=== PATIENT | female | born 1950 | race Caucasian/White ===

== ENCOUNTER 2023-01-30 09:46 | Outpatient (CLI) | payer MEDICARE, OTHER ==
[2023-01-30 10:01] LABS: HCT - HEMATOCRIT 39.8 % (37.0-47.0); HGB - HEMOGLOBIN 12.6 g/dL (12.0-16.0); MEAN CORPUSCULAR HEMOGLOBIN 31.8 pg (27.0-31.0); MEAN CORPUSCULAR HGB CONC 31.7 g/dL (32.0-36.0); MEAN CORPUSCULAR VOLUME 100.5 fL (81.0-99.0); MEAN PLATELET VOLUME 9.1 fL (7.9-10.8); RED BLOOD COUNT 3.96 10^6/uL (4.20-5.40); RED CELL DISTRIBUTION WIDTH 13.1 % (12.0-15.0); WHITE BLOOD COUNT 3.7 x10^3/uL (4.8-10.8)
[2023-01-30 10:15] LABS: ALBUMIN 4.2 g/dL (3.2-5.5); ALBUMIN/GLOBULIN RATIO 1.6 (1.0-2.2); ALKALINE PHOSPHATASE 62 IU/L (42-121); ALT ALANINE AMINOTRANSFERASE 10 IU/L (10-60); AST ASPARTATE AMINOTRANSFERASE 15 IU/L (10-42); BILIRUBIN,TOTAL 0.4 mg/dL (0.2-1.0); BUN - BLOOD UREA NITROGEN 14 mg/dL (6-20); CALCIUM 9.5 mg/dL (8.5-10.3); CARBON DIOXIDE - CO2 32 mmol/L (21-32); CHLORIDE 105 mmol/L (101-111); CHOL/HDL RATIO 4.3 (<4.4); CHOLESTEROL 260 mg/dL; CREATININE 0.8 mg/dL (0.6-1.3); GFR - MDRD 70 (>89); GLUCOSE 100 mg/dL (74-104); HDL CHOLESTEROL 61 mg/dL; LDL CHOLESTEROL,CALCULATED 168 mg/dL; LDL/HDL RATIO 2.8 (<4.4); POTASSIUM 4.3 mmol/L (3.5-4.5); SODIUM 140 mmol/L (135-145); TOTAL PROTEIN 6.8 g/dL (6.4-8.9); TRIGLYCERIDES 155 mg/dL (48-352); VLDL CHOLESTEROL 31 mg/dL
[2023-01-30 10:30] LABS: THYROID STIMULATING HORMONE 2.98 uIU/mL (0.34-5.60)
[2023-01-30 11:20] LABS: ESTIMATED AVERAGE GLUCOSE 120 mg/dL (70-100); HEMOGLOBIN A1c% 5.8 % (4.27-6.07)
== END 2023-01-30 09:47 | disposition home or self-care (01) ==
LOC: LAB 09:46
PROVIDERS: ATTEND Family Medicine
DX: E78.5 Hyperlipidemia, unspecified (principal); Z13.6 Encounter for screening for cardiovascular disorders
CPT/HCPCS: 36415; 80053; 80061; 83036; 83721; 84443; 85027

== ENCOUNTER 2023-02-08 08:47 | Outpatient (CLI) | payer MEDICARE, OTHER ==
--- NOTE | 2023-02-08 09:45 | Sleep Patient Instructions ---
Sleep Center Visit Summary - Patient Visit Information Reason for Visit: Initial consult for evaluation of sleep disordered breathing and other sleep issues. - Patient Instructions Instructions Attached: Sleep Study Additional Instructions: You will be completing a sleep study, either an in-lab polysomnography (PSG) or home sleep study (HST). You will follow-up in the sleep care office after the sleep study is completed to hear the results and talk about therapy, if needed. You will be called by our office staff to schedule this appointment, but you may contact us with any questions. - Clinic Information Contact: [facility] [address] [place] [address] [email or web address] T: [phone]
--- NOTE | 2023-02-08 09:49 | SLEEP CARE CONSULTATION ---
Information from patient questionnaire entered by Jada Grijalva. I have reviewed and concur with the information entered by Jada Grijalva. This document represents the service I personally performed and the decisions made by me, Dora Lewis ARNP. History of Present Illness Service Date and Time: 02/08/2023 0847 Reason for Visit: New patient Chief Complaint: reports: Insomnia, Snoring, Frequent awakenings at night Date of Onset: OVER 10 YRS Usual bedtime: 10PM Time it takes to fall asleep: 45-60MIN Snores at night: Yes Observed to quit breathing while asleep: No Number of times waking at night: 4-6 Reasons for waking at night: reports: Other (UNKNOWN). denies: Choking, Gasping for air Toss, Turn, or Twitch while sleeping: Yes Recalls having dreams: Yes Usually gets out of bed at: 730AM Feels refreshed in the morning: Yes Morning headache: No Sleepy or fatigued during the day: No Ever fallen asleep while driving: No Takes day naps: No Prior sleep studies: Yes Additional HPI information: I had the pleasure of seeing CYRUS MOBLEY today regarding the possibility of her having a sleep disorder. Her current complaints are frequent night awakenings, insomnia and snoring. She says she does not feel she has slept well in a long time. She is active and does not take naps. She says she will wake up often, even an hour or so after falling asleep. She does not wake up feeling refreshed. She says she does snores. She denies choking or gasping for air. Her ex- said he never saw her stop breathing in her sleep, just snoring. She can take over an hour to go to sleep and will then wake up 4-6 times a night. She has difficulty going back to sleep too. She says she has had 2 previous sleep studies. After her first sleep study in [place], she was placed on a CPAP but she did not tolerate it for more than 2 months. She was retested in another state and they put her in an oral appliance that she could not tolerate because of TMJ pain in the morning after wearing the device. She said she did not feel she slept better when she used it either. - Parasomnia Symptoms Ever been unable to move upon waking from sleep: No Walks in sleep: No Talks in sleep: No Ever acted out dreams in sleep: No Ever felt weak in the knees when startled or emotional: No Bothered by creepy, crawly, restless sensations in legs: No Problems with memory or concentration: No Subjective Initial Garita Sleepiness Scale score: 5 (02/08/23) Past Medical History Past Medical History: reports: Other (high cholesterol) Social History The patient's occupation is a RETIRED. Patient is and lives in . Have you smoked in the past 12 months: No Alcohol use: Yes Alcohol amount and frequency: 1-2 GLASSES 1 X WEEK Caffeine use: Yes Caffeine amount and frequency: 2CUPS ONCE IN THE MORNING Family History Family history of sleep disordered breathing: Yes Family Hx Sleep Apnea: Father: Snoring Allergies and Home Medications Known drug allergies: No Drug allergies reviewed: Yes Home medication list reviewed: Yes Allergy and home medication list: Home Medications Medication Instructions Recorded Confirmed Last Taken Type Agg Powder See Rx Instructions .ROUTE .COMPLEX 02/08/23 Unknown History Cbd Gummies See Rx Instructions .ROUTE .COMPLEX 02/08/23 Unknown History Jennifer Sleep Aid See Rx Instructions .ROUTE .COMPLEX 02/08/23 Unknown History Review of Systems Weight loss over past 5 years: 3-5 Cardiovascular: denies: high blood pressure Gastrointestinal: denies: heartburn Neurological: denies: headaches Psychiatric: denies: anxiety, depression Ear/Nose/Throat: reports: nasal congestion, dry mouth/throat, wisdom teeth removed. denies: tonsillectomy Immunologic: reports: sneezing, allergies to food or environment Physical Exam Vital signs obtained and entered by: JADA Washburn MA Blood Pressure: 128/71 (LEFT ARM) Cuff size: regular Heart Rate: 73 O2 Saturation: 98 Height: 5 ft 3.25 in Weight: 125 lb 9.6 oz Body Mass Index: 22.0 BMI Classification: Normal Neck circumference: 13.25 Mouth and throat: narrow oropharynx Soft palate: long Hard palate: normal Uvula: normal Uvula visualization: 25% Mallampati Class III Tongue: enlarged in size with teeth crowley on lateral edges Tonsils: small Neck: normal w/o lymphadenopathy or thyromegaly Heart: regular rate and rhythm Lungs: clear bilaterally Impression and Plan 1. Suspected Obstructive Sleep Apnea-Hypopnea Syndrome, as previously diagnosed and as suggested by a history of loud and irregular snoring, frequent awakening during the night and unrefreshed sleep. Narrow oropharynx and obesity are common predisposing factors for obstructive sleep apnea-hypopnea syndrome. I recommend proceeding to polysomnography to confirm the diagnosis and to assess severity. If the patient has significant sleep disordered breathing, a manual CPAP titration study will also be performed to find the optimal treatment pressure. I informed the patient of what the sleep studies involve and after some discussion, obtained agreement to proceed. The pathophysiology of obstructive sleep apnea-hypopnea syndrome was discussed with the patient and health risks of cardiovascular and cerebrovascular disease if not treated. Risks of drowsy driving discussed in detail and patient advised to avoid long distance driving and to well puller at the first sign of drowsiness. Patient agreed to plan. * Schedule polysomnography. * Avoid long distance driving or driving when feeling sleepy. * Avoid alcohol, sedative and muscle relaxant around bedtime. * Attempt to lose weight. * Review instructions provided by trained office staff on how to prepare for the sleep study. * Return for follow-up after sleep study completed. Plan: PSG Visit Type: In Office Time Spent with Patient (minutes): 25 Provider Statement: I spent 100% of the Face to Face Visit with the patient with greater than 50% spent counseling the patient and coordination of care.
[2023-02-08 09:55] VITALS: BP 128/71; O2SAT 98
== END 2023-02-08 08:48 | disposition home or self-care (01) ==
LOC: SC 08:47
PROVIDERS: ATTEND Nurse Practitioner Family
DX: G47.8 Other sleep disorders (principal); R06.83 Snoring
CPT/HCPCS: 99202; G0463; 99212

== ENCOUNTER 2023-04-04 20:27 | Outpatient (CLI) | payer MEDICARE, OTHER | END 2023-04-04 20:28 | disposition home or self-care (01) | LOC: SC 20:27 | PROVIDERS: ATTEND Nurse Practitioner Family | DX: G47.8 Other sleep disorders (principal); G47.33 Obstructive sleep apnea (adult) (pediatric); G47.61 Periodic limb movement disorder | CPT/HCPCS: 95810 ==

== ENCOUNTER 2023-04-09 08:33 | Outpatient (CLI) | payer MEDICARE, OTHER ==
--- NOTE | 2023-04-09 09:02 | Sleep Patient Instructions ---
Sleep Center Visit Summary - Patient Visit Information Reason for Visit: Sleep study follow-up - Patient Instructions Additional Instructions: You will be completing a titration sleep study in our sleep lab where you will be sleeping with the CPAP machine on and we will be adjusting your pressures to find your optimal pressure settings. Once we have your results back, we will call you and schedule a follow up to go over the results. You will be called by our office staff to schedule your follow up, but you may contact us with any questions or issue as needed. - Clinic Information Contact: [facility] [address] [place] [address] [email or web address] T: [phone]
--- NOTE | 2023-04-09 09:15 | SLEEP CARE CONSULTATION ---
Information from patient questionnaire entered by Jada Grijalva. I have reviewed and concur with the information entered by Jada Grijalva. This document represents the service I personally performed and the decisions made by , Dora Lewis ARNP. History of Present Illness Service Date and Time: 04/09/2023832 Initial [place] Sleepiness Scale score: 5 (02/08/23) Current [place] Sleepiness Scale score: 2 Additional HPI information: CYRUS MOBLEY returns for follow up and results of the recently performed polysomnography. The sleep study showed mild obstructive sleep apnea with an average AHI of 10.8 and derik oxygen saturation of 83%. She had moderate PLMs that did contribute to sleep fragmentation. I explained the pathophysiology behind obstructive sleep apnea. We then spent quite a bit of time discussing different treatment options. For mild obstructive sleep apnea, surgery and oral appliance are alternatives to nasal CPAP therapy but in moderate or severe cases, nasal CPAP is the most effective and reliable treatment. After some discussion, the patient opted to go with the nasal CPAP therapy. A manual titration study will be ordered to find optimal pressure for CPAP therapy. I explained how CPAP machine works and what to expect when using the machine. Patient does not drink alcohol. Patient was cautioned about risks of drowsy driving until sleepiness symptoms resolve. Patient denies drowsy driving. Sleep Study - Results Type of Sleep Study: Polysomnography (COMPLETED 04/04/23) Prior sleep studies: Yes Polysomnography/Home Sleep Study results: IMPRESSION: The quality of the study is good. The patient had normal sleep efficiency. The sleep architecture was abnormal for sleep fragmentation and reduced amount of time spent in slow wave sleep (N3). Respiratory monitoring showed mild obstructive sleep apnea-hypopnea (AHI = 10.8) associated with frequent arousals, oxyhemoglobin desaturation and mild hypoxia (derik oxygen saturation of 83%). The respiratory events occurred almost exclusively during supine sleep. The patient did not sleep supine during this study. Snore was light to loud in intensity. There was moderate periodic leg movement of sleep contributing to the sleep fragmentation. Cardiac rhythm was normal sinus rhythm without significant arrhythmia. No abnormal behavior (parasomnia) observed during the night. Allergies and Home Medications Known drug allergies: No Drug allergies reviewed: Yes Home medication list reviewed: Yes (no changes) Allergy and home medication list: Allergies No Known Drug Allergies Allergy (Verified 04/08/23 11:45) Review of Systems Review of systems same as previous: Yes (no changes) Physical Exam Vital signs obtained and entered by: DORA MCDUFFIE-Maddison Blood Pressure: 130/80 Cuff size: regular (right arm) Heart Rate: 67 O2 Saturation: 99 Height: 5 ft 3.25 in Weight: 129 lb Body Mass Index: 22.6 BMI Classification: Normal Impression and Plan 1. Obstructive Sleep Apnea-Hypopnea Syndrome, mild, with lowest oxygen saturation of 83%. Obviously this is the cause of the patients symptoms of unrefreshed sleep, and excessive daytime sleepiness. Patient has tried a CPAP in the past for a few months. She thinks that she would like to try the CPAP again. She cannot use the oral appliance because of the discomfort. I also reviewed surgical options including Inspire implant. I also reviewed the excite ABAD stimulation treatment for mild sleep apnea and snoring. She opted to try the CPAP first and then look into other options as needed. A manual titration study will be completed to find optimal treatment pressure. Compliance guidelines also reviewed. 2. Hypoxemia, mild, with a derik oxygen saturation of 83% and 4.9 minutes spent under 90%. The baseline oxygen saturation was normal with an average oxygen saturation of 94%. 3. Periodic limb movement, moderate, that did contribute to fragmentation of patients sleep. Periodic limb movement of sleep (PLMS) is characterized by episodes of repetitive limb movements that occur during sleep and usually involve the lower limbs. The etiology is unknown. Caffeine can also aggravate PLMS and should be avoided. Sleep hygiene methods can also improve sleep as well as lifestyle changes such as regular exercise. Patient was advised that no treatment is needed at this time. If symptoms increase, then further evaluation is indicated. * Titration study. * Avoid alcohol consumption near bedtime. * Avoid supine sleep until using CPAP. * The patient is again cautioned about driving until sleepiness completely resolves. * Return after titration study to be set up with CPAP. Counseling Topics: Sleeping position, Weight control Follow up with Sleep Care in: other (after titration study) Plan: Titration study Visit Type: In Office Time Spent with Patient (minutes): 28 Provider Statement: I spent 100% of the Face to Face Visit with the patient with greater than 50% spent counseling the patient and coordination of care.
[2023-04-09 09:17] VITALS: BP 130/80; O2SAT 99
== END 2023-04-09 08:34 | disposition home or self-care (01) ==
LOC: SC 08:33
PROVIDERS: ATTEND Nurse Practitioner Family
DX: G47.33 Obstructive sleep apnea (adult) (pediatric) (principal); R09.02 Hypoxemia; G47.61 Periodic limb movement disorder
CPT/HCPCS: 99213; G0463; 99212

== ENCOUNTER 2023-04-20 20:30 | Outpatient (CLI) | payer MEDICARE, OTHER | END 2023-04-20 20:31 | disposition home or self-care (01) | LOC: SC 20:30 | PROVIDERS: ATTEND Nurse Practitioner Family | DX: G47.33 Obstructive sleep apnea (adult) (pediatric) (principal); G47.61 Periodic limb movement disorder | CPT/HCPCS: 95811 ==

== ENCOUNTER 2023-05-08 09:09 | Outpatient (CLI) | payer MEDICARE, OTHER ==
--- NOTE | 2023-05-08 09:47 | Sleep Patient Instructions ---
Sleep Center Visit Summary - Patient Visit Information Reason for Visit: Titration study follow-up - Patient Instructions Instructions Attached: CPAP Additional Instructions: You are being started on CPAP therapy with pressure setting at 6 cmH2O. You will need to call the sleep care office to set up your follow up once you have your CPAP machine to check compliance and response to therapy at that time. You may call the office with any concerns about pressure feeling too low or too much for adjustment, if needed. You should contact DME supplier for any questions or concerns about mask or equipment. Please call office to schedule a follow up appointment in the sleep care office one month after obtaining new device. - Clinic Information Contact: [facility] [address] [place] [address] [email or web address] T: [phone]
--- NOTE | 2023-05-08 09:50 | SLEEP CARE CONSULTATION ---
Information from patient questionnaire entered by Jada Grijalva. I have reviewed and concur with the information entered by Jada Grijalva. This document represents the service I personally performed and the decisions made by , Dora Lewis ARNP. History of Present Illness Service Date and Time: 05/08/2023908 Initial [place] Sleepiness Scale score: 5 Current [place] Sleepiness Scale score: 6 (05/08/23) Additional HPI information: LEAH MOBLEY returns for follow up of the sleep study with a manual CPAP titration study performed on 04/20/23. The patient was informed of the following polysomnography findings: CPAP was initiated at 5 cmH2O and titrated up to CPAP at 7 cmH2O. CPAP at 6 cmH2O appeared to be optimal (AHI of 0.6 per hour on the pressure). There was supine sleep on the pressure. Oxygen saturation was normal throughout the night. Lower CPAP settings also appeared adequate. The patient appeared to have tolerated positive airway pressure therapy fairly well. I explained how CPAP machine works and what to expect when using the machine. Using CPAP every night in order to get used to it was emphasized. Patient advised to put CPAP mask on before getting into bed so as not to fall asleep without CPAP. To assist acclimation to CPAP use, it could also be used for a short time during day while reading or watching TV. The patient was instructed to call the CPAP supplier to discuss any mechanical problem that may occur. If the mask given is uncomfortable or is difficult to keep on through the night even with adjustment, contact the CPAP supplier as many will replace with another mask style if notified before 30 days. If snoring or perceives is not getting enough air or too much air from the machine, notify this office. Patient was cautioned about risks of drowsy driving until sleepiness symptoms re solve. Sleep Study - Results Type of Sleep Study: Polysomnography (TITRATION F/U COMPLETED 04/20/23) Prior sleep studies: Yes Polysomnography/Home Sleep Study results: IMPRESSION: The quality of the study is good. CPAP was initiated at 5 cmH2O and titrated up to CPAP at 7 cmH2O. CPAP at 6 cmH2O appeared to be optimal (AHI of 0.6 per hour on the pressure). There was supine sleep on the pressure. Oxygen saturation was normal throughout the night. Lower CPAP settings also appeared adequate. The patient appeared to have tolerated positive airway pressure therapy fairly well. The patients sleep efficiency was minimally reduced. The sleep architecture was normal. There was moderate periodic leg movement of sleep not associated with sleep fragmentation. Cardiac rhythm was normal sinus rhythm without significant arrhythmia. No abnormal behavior (parasomnia) observed during the night. Allergies and Home Medications Known drug allergies: No Drug allergies reviewed: Yes Home medication list reviewed: Yes (no changes) Allergy and home medication list: Allergies No Known Drug Allergies Allergy (Verified 05/06/23 09:40) Review of Systems Review of systems same as previous: Yes (NO CHANGE) Physical Exam Vital signs obtained and entered by: JADA Washburn MA Blood Pressure: 125/78 (RIGHT ARM) Cuff size: regular Heart Rate: 75 O2 Saturation: 98 Height: 5 ft 3.25 in Weight: 127 lb 3.2 oz Body Mass Index: 22.3 BMI Classification: Normal Impression and Plan 1. Obstructive Sleep Apnea-Hypopnea Syndrome, mild. Leah returns today after a titration study to be set up with CPAP therapy. The patient will be started on nasal autoCPAP therapy with pressure set at 6 cmH2O. Compliance guidelines also reviewed. A copy of compliance guidelines will be given for reference at check out. She was advised to call once she has new CPAP to set up followup in the sleep office. She voiced understanding. 2. Periodic limb movement, moderate, that did not fragment patients sleep. Periodic limb movement of sleep (PLMS) is characterized by episodes of repetitive limb movements that occur during sleep and usually involve the lower limbs. The etiology is unknown. Sleep hygiene methods can also improve sleep as well as lifestyle changes such as regular exercise. Patient was advised that no treatment is needed at this time. If symptoms increase, then further evaluation is indicated. * Nasal auto CPAP therapy, pressure at 6 cm H2O. * Avoid alcohol consumption near bedtime. * The patient is again cautioned about driving until sleepiness completely resolves. * Return one month after CPAP obtained. I will assess response to therapy and compliance at that time. Prescriptions: Auto CPAP Follow up with Sleep Care in: other (compliance follow up) Visit Type: In Office Time Spent with Patient (minutes): 25 Provider Statement: I spent 100% of the Face to Face Visit with the patient with greater than 50% spent counseling the patient and coordination of care.
[2023-05-08 09:54] VITALS: BP 125/78; O2SAT 98
== END 2023-05-08 09:10 | disposition home or self-care (01) ==
LOC: SC 09:09
PROVIDERS: ATTEND Nurse Practitioner Family
DX: G47.33 Obstructive sleep apnea (adult) (pediatric) (principal); G47.61 Periodic limb movement disorder
CPT/HCPCS: 99213; G0463; 99212

== ENCOUNTER 2023-07-10 09:13 | Outpatient (CLI) | payer MEDICARE, OTHER ==
--- NOTE | 2023-07-10 09:48 | Sleep Patient Instructions ---
Sleep Center Visit Summary - Patient Visit Information Reason for Visit: First compliance followup - Patient Instructions Additional Instructions: You were here for follow up of CPAP therapy. You will be continued on CPAP therapy with pressure at 6 cmH2O. You should follow up with sleep care in 3 months. You may contact us sooner for any questions or concerns. - Clinic Information Contact: [facility] [address] [place] [address] [email or web address] T: [phone]
--- NOTE | 2023-07-10 09:53 | SLEEP CARE CONSULTATION ---
Information from patient questionnaire entered by Sheila Grijalva. I have reviewed and concur with the information entered by Sheila Grijalva. This document represents the service I personally performed and the decisions made by me, Dora Lewis ARNP. History of Present Illness Service Date and Time: 07/10/2023912 Previous diagnosis: Mild, Obstructive Sleep Apnea-Hypopnea Syndrome AHI: 10.8 Reason for follow up: first compliance Equipment type: CPAP (RESMED Airsense 11, S/U 05/27/23) Equipment obtained from: Other ([facility]; getting supplies) Mask style: Nasal pillows Mask brand: Respironics (Dreamwear) Backup mask available: No Prior sleep studies: Yes Type of Sleep Study: Polysomnography (TITRATION F/U COMPLETED 04/20/23) HPI additional information: CYRUS MOBLEY was diagnosed to have mild, AHI 10.8, obstructive sleep apnea- hypopnea syndrome and returned today for CPAP therapy first compliance follow- up. Sleep Study - Results Type of Sleep Study: Polysomnography (TITRATION F/U COMPLETED 04/20/23) Prior sleep studies: Yes CPAP Compliance Data - Data Reviewed with Patient Average duration of nightly device use: 6 HRS 38 MINS Compliance rate %: 93 (05/27/23-06/25/23; / days used) Current pressure setting (cmH2O): 6 Average residual AHI: 0.4 Central apnea: 0.1 Obstructive apnea: 0.1 Hypopnea: 0.1 Average large leak: 0 L/min Subjective Patient concerns: reports: dry mouth, nose, throat. denies: aerophagia, mask discomfort, air blowing in eyes, mask leak noise, condensation in mask/hose, nasal congestion, epistaxis Observed to snore while using device: No Current pressure setting perceived as: comfortable On therapy, patient: reports: other (does not feel difference in sleep or restfulness). denies: drowsiness while driving Initial Kimberly Sleepiness Scale score: 5 Current [place] Sleepiness Scale score: 5 (07/10/23) Allergies and Home Medications Known drug allergies: No Drug allergies reviewed: Yes Home medication list reviewed: Yes (no changes) Allergy and home medication list: Allergies No Known Drug Allergies Allergy (Verified 07/08/23 10:12) Review of Systems Review of systems same as previous: Yes (NO CHANGE) Physical Exam Vital signs obtained and entered by: SHEILA Washburn MA Blood Pressure: 133/71 (LEFT ARM) Cuff size: regular Heart Rate: 71 O2 Saturation: 98 Height: 5 ft 3.25 in Weight: 128 lb 6.4 oz Body Mass Index: 22.5 BMI Classification: Normal Impression and Plan 1. Obstructive Sleep Apnea-Hypopnea Syndrome, mild, with good treatment compliance and good apnea control. She says she does not feel difference in sleep quality or restfulness. She still has hard time with waking up early, sleep maintenance. She feels like she is tolerating the CPAP better this time but still does not feel it is improving her sleep overall. We discussed other options, including exciteOSA, and she took a pamphlet with her. She is going to see if her insurance may pay for this treatment and get back to me for an order if needed. She has reached compliance and is willing to continue to use the CPAP. I will have her followup in 3 months. Patient's apnea severity and rationale for treatment to reduce apnea, improve sleep quality and reduce cardiovascular and cerebrovascular events was reviewed. * Continue CPAP pressure at 6 cmH2O * Notify me if snoring with mask or feeling that the pressure is too much or too little * Attempt to lose weight * Call this office if any problems using CPAP * Return for follow up in 3 months, or sooner if concerns arise Follow up with Sleep Care in: 3 months Visit Type: In Office Time Spent with Patient (minutes): 28 Provider Statement: I spent 100% of the Face to Face Visit with the patient with greater than 50% spent counseling the patient and coordination of care.
[2023-07-10 09:57] VITALS: BP 133/71; O2SAT 98
== END 2023-07-10 09:14 | disposition home or self-care (01) ==
LOC: SC 09:13
PROVIDERS: ATTEND Nurse Practitioner Family
DX: G47.33 Obstructive sleep apnea (adult) (pediatric) (principal)
CPT/HCPCS: 99213; G0463; 99212